=== PATIENT | male | born 2000 | race African-American/Black ===

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

== ENCOUNTER 2019-12-31 16:38 | Emergency (ER) | payer OTHER ==
[~2019-12-31] VITALS: Ht 177.8 cm; Wt 83.9 kg
[~2019-12-31 16:38] MED LIST: IBUPROFEN 600600 M1 PO; RITALIN10 MG PO
[2019-12-31 18:00] VITALS: BP 167/76
== END 2019-12-31 18:00 | disposition home or self-care (01) ==
LOC: ER 16:38
DX: S60.131A Contusion of right middle finger with damage to nail, initial encounter (principal); Z79.899 Other long term (current) drug therapy; W23.0XXA Caught, crushed, jammed, or pinched between moving objects, initial encounter; Y93.89 Activity, other specified; Y92.89 Other specified places as the place of occurrence of the external cause; Y99.8 Other external cause status